=== PATIENT | male | born 1955 | race Caucasian/White ===

== ENCOUNTER 2018-09-11 01:01 | Emergency (ER) | payer SELFPAY ==
[~2018-09-11] VITALS: Ht 182.9 cm; Wt 104.3 kg
[2018-09-11 01:05] VITALS: BP 121/76
--- NOTE | 2018-09-11 01:05 | NUR ---
PT TAKEN TO BED 7
--- NOTE | 2018-09-11 01:10 | NUR ---
Dr. Zapata evaluating patient at bedside.
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
[2018-09-11] MEDS ORDERED: KETOROLAC 30 MG/ML VIAL IM ONE (01:15)
--- NOTE | 2018-09-11 01:50 | NUR ---
PT TAKEN TO XRAY.
--- NOTE | 2018-09-11 02:13 | NUR ---
PT RETURNED FROM XRAY.
--- NOTE | 2018-09-11 02:26 | NUR ---
Patient discharged with v/s stable. Written and verbal after care instructions given and explained. Patient alert, oriented and verbalized understanding of instructions. Ambulatory with steady gait. All questions addressed prior to discharge. ID band removed. Patient advised to follow up with PMD. Rx of Flexeril and Ibuprofen given. Patient educated on indication of medication including possible reaction and side effects. Opportunity to ask questions provided and answered.
[2018-09-11 02:33] VITALS: BP 104/67
[2018-09-11] MEDS ORDERED: TAMS0.4C96 PO (13:31)
[2018-09-11] MEDS ORDERED: BENA5TAB7 PO (13:31)
[2018-09-11] MEDS ORDERED: ATOR10TA PO (13:31)
[2018-09-11] MEDS ORDERED: FINA5TAB1 PO (13:31)
== END 2018-09-11 02:26 | disposition home or self-care (01) ==
LOC: MED 01:01
DX: S29.012A Strain of muscle and tendon of back wall of thorax, initial encounter (principal); W20.8XXA Other cause of strike by thrown, projected or falling object, initial encounter; Y93.89 Activity, other specified; Y92.89 Other specified places as the place of occurrence of the external cause; Y99.8 Other external cause status
CPT/HCPCS: 72072; 96372; 99283; J1885

== ENCOUNTER 2018-09-11 13:12 | Emergency (ER) | payer SELFPAY ==
[~2018-09-11] VITALS: Ht 182.9 cm; Wt 104.3 kg
[2018-09-11 13:12] VITALS: BP 120/66
--- NOTE | 2018-09-11 13:12 | NUR ---
PATIENT BIBA TO BED 6 AT THIS TIME.
--- NOTE | 2018-09-11 13:12 | NUR ---
BIBA FOR DIFF. BREATHING. PARAMEDICS GAVE 50MG IM PRIOR TO ARRIVAL TO ED. PT STATES HE FELT LIKE HIS THROAT WAS SWOLLEN. PT ATTRIBUTES TO POSSIBLE MED GIVEN LAST NOC IN THIS ER-FLEXERIL. LUNGS CTA, PT TALKING WITHOUT PROBLEMS, NO SWELLING OF TONGUE NOTED AT THIS TIME. PT PLACED ON NC 2L FOR COMFORT UPON ARRIVAL TO ED. PT DENIES N/V/D; SKIN IS PINK/WARM/DRY; AAOX4 WITH EVEN AND STEADY GAIT; HR EVEN AND REGULAR; PATIENT POSITIONED FOR COMFORT; HOB ELEVATED; BEDRAILS UP X2; BED DOWN. PENDING ER MD EVALUATION.
[2018-09-11] MEDS ORDERED: TAMS0.4C96 PO (13:31)
[2018-09-11] MEDS ORDERED: BENA5TAB7 PO (13:31)
[2018-09-11] MEDS ORDERED: ATOR10TA PO (13:31)
[2018-09-11] MEDS ORDERED: FINA5TAB1 PO (13:31)
--- NOTE | 2018-09-11 14:18 | NUR ---
PT SLEEPING COMFORTABLY AT THIS TIME, EASILY AROUSED. VSS
[2018-09-11 14:58] VITALS: BP 121/72
--- NOTE | 2018-09-11 14:58 | NUR ---
Patient discharged with v/s stable. Written and verbal after care instructions given and explained. Patient alert, oriented and verbalized understanding of instructions. Ambulatory with steady gait. All questions addressed prior to discharge. ID band removed. Patient advised to follow up with PMD. Rx of PEPCID AND CLARITIN given. Patient educated on indication of medication including possible reaction and side effects. Opportunity to ask questions provided and answered.
== END 2018-09-11 14:58 | disposition home or self-care (01) ==
LOC: MED 13:12
DX: R06.00 Dyspnea, unspecified (principal); Z79.899 Other long term (current) drug therapy
CPT/HCPCS: 99283

== ENCOUNTER 2023-01-28 13:07 | Emergency (ER) | payer BC ==
[~2023-01-28] VITALS: Ht 182.9 cm; Wt 98.4 kg
[~2023-01-28 13:07] MED LIST: ATOR10TA PO; BENA5TAB36 PO; FINA-54 PO; TAMS0.4C96 PO
[2023-01-28 13:37] VITALS: BP 105/76; PULSE 82; RESP 16; TEMP 97; O2SAT 99
[2023-01-28] MEDS ORDERED: CEPH-588 PO (14:03)
[2023-01-28 14:13] VITALS: BP 110/76; PULSE 82; RESP 16; TEMP 97; O2SAT 99
== END 2023-01-28 14:13 | disposition home or self-care (01) ==
LOC: MED 13:07
DX: L03.114 Cellulitis of left upper limb (principal); I10 Essential (primary) hypertension; Z79.899 Other long term (current) drug therapy
CPT/HCPCS: 99283